=== PATIENT | female | born 1980 | race American Indian/Alaskan Native ===

== ENCOUNTER 2016-06-18 09:59 | Outpatient (CLI) | payer BC ==
--- NOTE | 2016-06-18 12:58 | Magnetic Resonance Report ---
MRI PELVIS WITHOUTAND WITH CONTRAST: 06/18/16 CLINICAL: Pelvic pain and bleeding. COMPARISON :None. TECHNIQUE: Sagittal, coronal and axial T1 and T2 fat sat sequences plus sagittal, coronal and axial postcontrast T1 fat sequences on a 1.5 Asha magnet. 15 cc of Multihance was injected intravenously for contrast portion of exam the consent was obtained prior to the administration of contrast. FINDINGS: The uterus is enlarged and measures 13.0 x 6.9 x 7.0 cm. No uterine fibroid or mass. However, pronounced thickening of the junctional zone in the anterior uterine body measuring 3.6 cm in thickness. No thickening of the posterior junctional zone. Numerous linear striations and myometrial cysts are identified within the thickened anterior junctional zone. The myometrial cysts measure less than 1 cm with a dominant 4 mm fundal myometrial cyst. Relatively homogeneous uterine enhancement postcontrast. Several nabothian cysts of the cervix with the largest measuring 5 mm. The ovaries are normal. The right ovary measures 2.9 x 1.7 x 2.5 cm with a dominant 1.6 cm follicle. The left ovary measures 3.2 x 1.0 x 1.9 cm and contains several subcentimeter follicles. Normal urinary bladder and the rectum and bowel loops. Normal bones and soft tissues. No adnexal mass. Minimal free pelvic fluid. IMPRESSION: 1. Uterine adenomyosis with uterine enlargement. 2. No uterine fibroids identified. 3. Normal ovaries with a dominant 1.6 cm follicle the right ovary. 4. Physiologic free fluid in the pelvis.
== END 2016-06-18 10:00 | disposition home or self-care (01) ==
LOC: SPVIMAG 09:59
PROVIDERS: ATTEND Radiology Vascular & Interventional Radiology
DX: N80.0 Endometriosis of uterus (principal); N93.9 Abnormal uterine and vaginal bleeding, unspecified; N88.8 Other specified noninflammatory disorders of cervix uteri
CPT/HCPCS: 72197; A9577